=== PATIENT | female | born 1950 | race Caucasian/White ===

== ENCOUNTER 2020-04-30 18:02 | Emergency (ER) | payer MEDICARE, SELFPAY ==
[2020-04-30 19:17] VITALS: BP 186/81; PULSE 97; RESP 18; TEMP 36.1; O2SAT 97; BMI 42.0
[2020-04-30 20:55] VITALS: BP 180/74; PULSE 81; RESP 15; TEMP 36.1; O2SAT 98
--- NOTE | 2020-04-30 22:10 | ED.GENADULT ---
HPI - General Adult General Chief complaint: General Medical Stated complaint: hyperglycemia, Foot infection Time Seen by Provider: 04/30/20 21:57 Source: patient Mode of arrival: ambulatory Limitations: no limitations History of Present Illness HPI narrative: patient comes to emergency room complaining of right ankle cellulitis. Patient states it has been going on for several weeks, patient states her ankle hurts and it is very itchy at the same time, patient has been scratching and peeling of the scabs for a week. Patient denies any calf pain, no fever or chills. Patient is able to bear weight. Patient has also not notice that there was clear fluid leaking from some of the scabs, not purulent. MD complaint: Cellulitis Related Data Previous Rx's Medication Instructions Recorded sulfamethoxazole-trimethoprim 1 tab PO Q12H #14 tab 05/01/20 [Bactrim DS] Allergies Allergy/AdvReac Type Severity Reaction Status Date / Time cefazolin [From Kefzol] Allergy Mild RASH Verified 04/30/20 20:57 Keppra XR Allergy Unknown Rash Uncoded 04/30/20 19:24 Review of Systems Review of Systems: Constitutional : No Weight loss, No Fever, No Chills, No Night Sweats, No Fatigue, No Malaise ENT/Mouth : No Hearing loss, No Ear Pain, No Nasal Congestion, No Sinus Pain, No Hoarseness, No sore throat, No Rhinorrhea, No Swallowing Difficulty Eyes: No Eye Pain, No Swelling, No Redness, No Foreign Body, No Discharge, No Vision Changes Cardiovascular : No Chest Pain, No SOB, No Dyspnea on Exertion, No Orthopnea, No Edema, No Palpitations Respiratory : No Cough, No Sputum, No Wheezing, No Smoke Exposure, No Dyspnea Gastrointestinal : No Nausea, No Vomiting, No Diarrhea, No Constipation, No abdominal Pain, No Hematochezia, No Melena Genitourinary : no irregular bleeding, No Dysuria, No Urinary Frequency, No Hematuria, No Urinary Incontinence, No Urgency, No Flank Pain, No Urinary Flow Changes, No Hesitancy Musculoskeletal : No joint pain, No Myalgias, No Joint Swelling Skin : cellulitis, broken skin/scabs in right ankle Neuro : No Weakness, No Numbness, No Paresthesias, No Loss of Consciousness, No Dizziness, No Headache Psych : No Anxiety/Panic, No Depression, No SI/HI/AH/VH, No Social Issues, Heme/Lymph: No Bruising, No Bleeding,No Lymphadenopathy Endocrine : No Polyuria, No Polydipsia, No Temperature Intolerance [facility] Past Medical History Medical History Diabetes HTN (hypertension) Surgical History (Updated 04/30/20 @ 19:22 by Mary Elias) H/O liver transplant Hx of CABG Social History Social History Smoking Status: Never smoker Use of substances other than those prescribed or required for medical reasons: Yes Substance Use Type: Marijuana Substance Use Type Other:: edibles Substance Use Frequency: Occasionally Advance Directives: No Advance Directives Information Provided: No Physical Exam Vital Signs: Vital Signs: Last Vital Signs Temp 96.9 F 04/30/20 20:55 Pulse 89 05/01/20 04:39 Resp 14 05/01/20 04:39 BP 145/69 H 05/01/20 04:39 Pulse Ox 96 05/01/20 04:39 Body Mass Index 42.0 Appearance: Alert. Oriented X3. No acute distress. Eyes: Pupils equal, round and reactive to light. ENT: Pharynx normal. Neck: Normal inspection. Neck supple. No lymph nodes noted. No crepitus CVS: Normal heart rate and rhythm. Pulses normal. Normal S1 and S2 Respiratory: No respiratory distress. Breath sounds normal. No Wheezing. No rales Abdomen: Soft and nontender. No rigidity. No distention. good BS x4 Skin: dry skin, cellulitis in the right ankle, peeled of scabs, oozing clear fluid, +1 non-pitting edema Extremities: No lower extremity edema. No lower extremity edema. No Lacerations. No Rash Neuro: Oriented X 3. No motor deficit. No sensory deficit. Moving all extermities. No slurred speech. Course Course Course Narrative: Patient's blood glucose dropped from 693 to 465 to 98, patient 8, now blood sugar 194. Patient asymptomatic. Patient received p.o. Bactrim. Patient not able to take cephalosporins due to allergies. Medical Decision Making Lab Data Result diagrams: 04/30/20 22:46 05/01/20 02:07 Labs: Lab Results 04/30/20 04/30/20 04/30/20 Range/Units 22:46 22:46 22:46 WBC 7.4 (4.8-10.8) X10*3/uL RBC 4.52 (4.20-5.50) X10*6/uL Hgb 13.1 (12.0-16.0) g/dl Hct 38.8 (37-47) % MCV 85.8 (80-98) fL MCH 29.0 (27.0-33.0) pg MCHC 33.8 (31.0-35.0) g/dl RDW 12.8 (11.0-16.0) % Plt Count 198 (160-400) X10*3/uL MPV 10.0 (9.4-12.3) fL Immature Gran % (Auto) 0.3 (0.0-0.4) % Neut % (Auto) 68.4 (45-73) % Lymph % (Auto) 21.8 (20-40) % [place] % (Auto) 6.5 (2-11) % Eos % (Auto) 2.7 (0-4) % Baso % (Auto) 0.3 (0-2) % Lymph # (Auto) 1.6 (1.2-4.9) X10*3/uL [place] # (Auto) 0.5 (0.1-1.2) X10*3/uL Eos # (Auto) 0.2 (0.0-0.4) X10*3/uL Baso # (Auto) 0.0 (0.0-0.2) X10*3/uL Abs Immat Gran (auto) 0.02 (0.00-0.03) X10*3/uL Absolute Neuts (auto) 5.1 (2.0-8.3) X10*3/uL Absolute Nucleated RBC 0.000 (0.0-0.012) X10*3/uL Nucleated RBC % (auto) 0.0 (0.0-0.2) /100WBC Sodium 129 L (135-145) mmol/L Potassium 4.6 (3.3-5.1) mmol/l Chloride 92 L (96-108) mmol/L Carbon Dioxide 25 (22-29) mmol/L Anion Gap 17 (12-20) BUN 28 H (9-16) mg/dL Creatinine 1.59 H (0.5-1.4) mg/dL Estim Creat Clear Calc 38.3 Estimated GFR 32 POC Glucose (60-115) mg/dL Random Glucose 693 H* (60-115) mg/dL Lactic Acid 1.4 (0.5-2.0) mmol/L Calcium 8.4 (8.4-10.2) mg/dL 05/01/20 05/01/20 05/01/20 Range/Units 01:02 02:07 04:33 WBC (4.8-10.8) X10*3/uL RBC (4.20-5.50) X10*6/uL Hgb (12.0-16.0) g/dl Hct (37-47) % MCV (80-98) fL MCH (27.0-33.0) pg MCHC (31.0-35.0) g/dl RDW (11.0-16.0) % Plt Count (160-400) X10*3/uL MPV (9.4-12.3) fL Immature Gran % (Auto) (0.0-0.4) % Neut % (Auto) (45-73) % Lymph % (Auto) (20-40) % [place] % (Auto) (2-11) % Eos % (Auto) (0-4) % Baso % (Auto) (0-2) % Lymph # (Auto) (1.2-4.9) X10*3/uL [place] # (Auto) (0.1-1.2) X10*3/uL Eos # (Auto) (0.0-0.4) X10*3/uL Baso # (Auto) (0.0-0.2) X10*3/uL Abs Immat Gran (auto) (0.00-0.03) X10*3/uL Absolute Neuts (auto) (2.0-8.3) X10*3/uL Absolute Nucleated RBC (0.0-0.012) X10*3/uL Nucleated RBC % (auto) (0.0-0.2) /100WBC Sodium 132 L (135-145) mmol/L Potassium 3.7 (3.3-5.1) mmol/l Chloride 98 (96-108) mmol/L Carbon Dioxide 25 (22-29) mmol/L Anion Gap 13 (12-20) BUN 25 H (9-16) mg/dL Creatinine 1.37 (0.5-1.4) mg/dL Estim Creat Clear Calc 44.5 Estimated GFR 38 POC Glucose 488 H* 93 (60-115) mg/dL Random Glucose 465 H* (60-115) mg/dL Lactic Acid (0.5-2.0) mmol/L Calcium 8.2 L (8.4-10.2) mg/dL 05/01/20 05/01/20 Range/Units 04:45 05:09 WBC (4.8-10.8) X10*3/uL RBC (4.20-5.50) X10*6/uL Hgb (12.0-16.0) g/dl Hct (37-47) % MCV (80-98) fL MCH (27.0-33.0) pg MCHC (31.0-35.0) g/dl RDW (11.0-16.0) % Plt Count (160-400) X10*3/uL MPV (9.4-12.3) fL Immature Gran % (Auto) (0.0-0.4) % Neut % (Auto) (45-73) % Lymph % (Auto) (20-40) % [place] % (Auto) (2-11) % Eos % (Auto) (0-4) % Baso % (Auto) (0-2) % Lymph # (Auto) (1.2-4.9) X10*3/uL [place] # (Auto) (0.1-1.2) X10*3/uL Eos # (Auto) (0.0-0.4) X10*3/uL Baso # (Auto) (0.0-0.2) X10*3/uL Abs Immat Gran (auto) (0.00-0.03) X10*3/uL Absolute Neuts (auto) (2.0-8.3) X10*3/uL Absolute Nucleated RBC (0.0-0.012) X10*3/uL Nucleated RBC % (auto) (0.0-0.2) /100WBC Sodium (135-145) mmol/L Potassium (3.3-5.1) mmol/l Chloride (96-108) mmol/L Carbon Dioxide (22-29) mmol/L Anion Gap (12-20) BUN (9-16) mg/dL Creatinine (0.5-1.4) mg/dL Estim Creat Clear Calc Estimated GFR POC Glucose 85 95 (60-115) mg/dL Random Glucose (60-115) mg/dL Lactic Acid (0.5-2.0) mmol/L Calcium (8.4-10.2) mg/dL Discharge Plan Discharge Clinical Impression: Acute hyperglycemia Cellulitis Qualifiers: Site of cellulitis: unspecified site Qualified Code(s): L03.90 - Cellulitis, unspecified Patient Disposition: Home, Self-Care Instructions: Cellulitis (ED), Diabetic Hyperglycemia (ED) Additional Instructions: Please follow-up with your primary care physician tomorrow. If you have any worsening or new symptoms, please return to the emergency room or call 911 Prescriptions: New sulfamethoxazole-trimethoprim [Bactrim DS] 800-160 mg tablet 1 tab PO Q12H Qty: 14 RF: 0
[2020-04-30] MEDS: 0.9 % Sodium Chloride 1,000 ML 999 ML IVCONT (22:50)
[2020-04-30 22:53] LABS: Basophils Percent Auto 0.3 % (0-2); Eosinophils Absolute Auto 0.2 X10*3/uL (0.0-0.4); Eosinophils Percent Auto 2.7 % (0-4); Hematocrit 38.8 % (37-47); Hemoglobin 13.1 g/dl (12.0-16.0); Imm Gran Abs Auto 0.02 X10*3/uL (0.00-0.03); Imm Gran Pct Auto 0.3 % (0.0-0.4); Lymphocytes Absolute Auto 1.6 X10*3/uL (1.2-4.9); Lymphocytes Percent Auto 21.8 % (20-40); MANUAL DIFF FLAG NO; Mean Corpuscular HGB Conc 33.8 g/dl (31.0-35.0); Mean Corpuscular Volume 85.8 fL (80-98); Monocytes Absolute Auto 0.5 X10*3/uL (0.1-1.2); Monocytes Percent Auto 6.5 % (2-11); Neutrophils Absolute Auto 5.1 X10*3/uL (2.0-8.3); Neutrophils Percent Auto 68.4 % (45-73); Platelet Count 198 X10*3/uL (160-400); Red Blood Count 4.52 X10*6/uL (4.20-5.50); Red Cell Distribution Width 12.8 % (11.0-16.0); White Blood Count 7.4 X10*3/uL (4.8-10.8)
[2020-04-30 23:25] LABS: Lactic Acid 1.4 mmol/L (0.5-2.0)
[2020-04-30 23:35] LABS: Anion Gap 17 (12-20); Blood Urea Nitrogen 28 mg/dL (9-16); Calcium 8.4 mg/dL (8.4-10.2); Carbon Dioxide 25 mmol/L (22-29); Chloride 92 mmol/L (96-108); Creatinine Clr Calc Pharmacy 38.3; Estimated Glomerular Filt Rate 32; Glucose Random 693 mg/dL (60-115); Potassium 4.6 mmol/l (3.3-5.1); Sodium 129 mmol/L (135-145)
[2020-05-01] VITALS: BP 153/62; PULSE 84; RESP 15; O2SAT 98
[2020-05-01] MEDS: Insulin Regular, Human 100 UNIT/ML 3 ML VIAL 10 UNIT IVPUSH ×3 (00:39→04:10)
--- NOTE | 2020-05-01 00:56 | PC.NURSE ---
Patient had to be medicated for increased blood sugar of 693.
[2020-05-01 01:05] LABS: Glucose, Whole Blood 488 mg/dL (60-115)
--- NOTE | 2020-05-01 01:24 | PC.NURSE ---
Patient medicated per emar as noted.
[2020-05-01 02:07] VITALS: BP 162/73; PULSE 75; RESP 14; O2SAT 95
[2020-05-01 02:41] LABS: Anion Gap 13 (12-20); Blood Urea Nitrogen 25 mg/dL (9-16); Calcium 8.2 mg/dL (8.4-10.2); Carbon Dioxide 25 mmol/L (22-29); Chloride 98 mmol/L (96-108); Creatinine Clr Calc Pharmacy 44.5; Estimated Glomerular Filt Rate 38; Glucose Random 465 mg/dL (60-115); Potassium 3.7 mmol/l (3.3-5.1); Sodium 132 mmol/L (135-145)
[2020-05-01 04:00] VITALS: BP 164/67; PULSE 78; RESP 14; O2SAT 95
[2020-05-01 04:37] LABS: Glucose, Whole Blood 93 mg/dL (60-115)
[2020-05-01 04:39] VITALS: BP 145/69; PULSE 89; RESP 14; O2SAT 96
[2020-05-01 05:13] LABS: Glucose, Whole Blood 85 mg/dL (60-115)
[2020-05-01 05:13] LABS: Glucose, Whole Blood 95 mg/dL (60-115)
[2020-05-01 05:44] LABS: Glucose, Whole Blood 129 mg/dL (60-115)
== END 2020-05-01 06:40 | disposition home or self-care (01) ==
PROVIDERS: Emergency Provider Emergency Medicine
DX: E11.65 Type 2 diabetes mellitus with hyperglycemia (principal); L03.90 Cellulitis, unspecified; I10 Essential (primary) hypertension; Z79.899 Other long term (current) drug therapy
CPT/HCPCS: 36415; 80048; 82947; 83605; 85025; 87040; 96361; 96374; 96376; 99284

== ENCOUNTER 2020-05-02 15:09 | Emergency (ER) | payer MEDICARE, SELFPAY ==
[2020-05-02 15:47] VITALS: BP 178/78; PULSE 88; RESP 18; TEMP 36.7; O2SAT 97; BMI 38.5
--- NOTE | 2020-05-02 16:23 | ED_ITS ---
HPI - General Adult General Chief complaint: Recheck/Abnormal Lab/Rx Stated complaint: hyperglycemia Time Seen by Provider: 05/02/20 16:09 History of Present Illness HPI narrative: 69-year-old female with a history of diabetes presented today with having elevated glucose at the primary care doctor's office. Patient treat occasionally. Has been on same medication for diabetes. Patient claims compliance with her medication. Have increased urination. No fever no chills no cough no congestion or upper respiratory symptoms. Patient does have a infection in her right leg and foot that is currently being treated with Bactrim. The medications been on for while. Patient was in the emergency department yesterday for high sugars well. No systemic complaints at this time. No chest pain no shortness of breath no diaphoresis. Related Data Previous Rx's Medication Instructions Recorded sulfamethoxazole-trimethoprim 1 tab PO Q12H #14 tab 05/01/20 [Bactrim DS] Allergies Allergy/AdvReac Type Severity Reaction Status Date / Time cefazolin [From Kefzol] Allergy Mild RASH Verified 04/30/20 20:57 Keppra XR Allergy Unknown Rash Uncoded 04/30/20 19:24 Review of Systems Review of Systems: Constitutional: No Weight loss, No Fever, No Chills, No Night Sweats, positive Fatigue, No Malaise ENT/Mouth: No Hearing loss, No Ear Pain, No Nasal Congestion, No Sinus Pain, No Hoarseness, No sore throat, No Rhinorrhea, No Swallowing Difficulty Eyes: No Eye Pain, No Swelling, No Redness, No Foreign Body, No Discharge, No Vision Changes Cardiovascular: No Chest Pain, No SOB, No Dyspnea on Exertion, No Orthopnea, No Edema, No Palpitations Respiratory: No Cough, No Sputum, No Wheezing, No Smoke Exposure, No Dyspnea Gastrointestinal: No Nausea, No Vomiting, No Diarrhea, No Constipation, No abdominal Pain, No Hematochezia, No Melena Genitourinary: no irregular bleeding, No Dysuria, No Urinary Frequency, No Hematuria, No Urinary Incontinence, No Urgency, No Flank Pain, No Urinary Flow Changes, No Hesitancy Musculoskeletal: No joint pain, No Myalgias, No Joint Swelling Skin: No Skin Lesions, No rash Neuro: No Weakness, No Numbness, No Paresthesias, No Loss of Consciousness, No Dizziness, No Headache Psych: No Anxiety/Panic, No Depression, No SI/HI/AH/VH, No Social Issues, Heme/Lymph: No Bruising, No Bleeding,No Lymphadenopathy Endocrine: No Polyuria, No Polydipsia, No Temperature Intolerance [facility] Past Medical History Attestation statement: The following information was validated with the patient. Medical History Diabetes HTN (hypertension) Surgical History H/O liver transplant Hx of CABG Social History Social History Smoking Status: Never smoker Use of substances other than those prescribed or required for medical reasons: No Substance Use Type: Marijuana Advance Directives: No Advance Directives Information Provided: Yes Physical Exam Vital Signs: Vital Signs: Last Vital Signs Temp 98.5 F 05/02/20 19:23 Pulse 94 05/02/20 19:23 Resp 18 05/02/20 19:23 BP 153/58 H 05/02/20 19:23 Pulse Ox 99 05/02/20 19:23 Body Mass Index 38.5 Appearance: Alert. Oriented X3. No acute distress. Eyes: Pupils equal, round and reactive to light. ENT: Pharynx normal. Neck: Normal inspection. Neck supple. No lymph nodes noted. No crepitus CVS: Normal heart rate and rhythm. Pulses normal. Normal S1 and S2 Respiratory: No respiratory distress. Breath sounds normal. No Wheezing. No rales Abdomen: Soft and nontender. No rigidity. No distention. good BS x4 Skin: Skin warm and dry. Normal skin color. Normal skin turgor. Extremities: No lower extremity edema. Neurovascular intact to all extremities. No Lacerations. Positive slightly erythematous rash over the distal right ankle approximately 5 cm x 5 cm in size. There is no gross warmth on palpation. It blanches. Healing. Pulses are 2+ at dorsalis pedis. Range of motion at the ankles intact. Capillary refill at the toes are intact sensation over the foot intact Neuro: Oriented X 3. No motor deficit. No sensory deficit. Moving all extermities. No slurred speech Medical Decision Making MDM Narrative Medical decision making narrative: Patient's initial sugar over 600. Given insulin IV fluids. Patient's electrolytes showed no evidence of diabetic ketoacidosis. There is no anion gap. There is no ketones. Patient well appearing no distress. After IV fluid and sugar after monitoring for 3 hours patient's sugar down to below 300. Will discharge patient home. Will have patient closely monitor his sugar 3 times a day and follow a strict diabetic diet. Close follow-up tomorrow with her primary physician for changes in medication. Currently in stable condition. Lab Data Result diagrams: 05/02/20 16:46 05/02/20 16:46 Labs: Lab Results 05/02/20 05/02/20 05/02/20 Range/Units 16:44 16:46 16:54 VBG pH 7.37 (7.32-7.43) VBG pCO2 47 mmhg VBG Oxygen Liters/Min Not Reportable VBG pO2 37 mmhg VBG HCO3 26 mmol/L VBG O2 Saturation 73.3 % VBG Base Excess 0.5 mmol/L Sodium 131 L (135-145) mmol/L Potassium 4.7 D (3.3-5.1) mmol/l Chloride 95 L (96-108) mmol/L Carbon Dioxide 25 (22-29) mmol/L Anion Gap 16 (12-20) BUN 23 H (9-16) mg/dL Creatinine 1.68 H (0.5-1.4) mg/dL Estim Creat Clear Calc 34.5 Estimated GFR 30 POC Glucose 561 H* (60-115) mg/dL Random Glucose 649 H* (60-115) mg/dL Calcium 8.3 L (8.4-10.2) mg/dL Phosphorus 4.1 (2.7-4.5) mg/dL Magnesium 1.8 (1.6-2.6) mg/dL Total Bilirubin 0.7 (0.0-1.0) mg/dL AST 13 (5-31) U/L ALT 14 (0-31) U/L Alkaline Phosphatase 100 (39-117) U/L Total Protein 6.8 (6.5-8.0) g/dL Albumin 3.8 (3.5-5.0) g/dL Acetone, Qual Negative (Negative) 05/02/20 05/02/20 Range/Units 18:01 19:24 VBG pH (7.32-7.43) VBG pCO2 mmhg VBG Oxygen Liters/Min VBG pO2 mmhg VBG HCO3 mmol/L VBG O2 Saturation % VBG Base Excess mmol/L Sodium (135-145) mmol/L Potassium (3.3-5.1) mmol/l Chloride (96-108) mmol/L Carbon Dioxide (22-29) mmol/L Anion Gap (12-20) BUN (9-16) mg/dL Creatinine (0.5-1.4) mg/dL Estim Creat Clear Calc Estimated GFR POC Glucose 356 H* 302 H (60-115) mg/dL Random Glucose (60-115) mg/dL Calcium (8.4-10.2) mg/dL Phosphorus (2.7-4.5) mg/dL Magnesium (1.6-2.6) mg/dL Total Bilirubin (0.0-1.0) mg/dL AST (5-31) U/L ALT (0-31) U/L Alkaline Phosphatase (39-117) U/L Total Protein (6.5-8.0) g/dL Albumin (3.5-5.0) g/dL Acetone, Qual (Negative) Discharge Plan Discharge Clinical Impression: Acute hyperglycemia Patient Disposition: Home, Self-Care Instructions: Diabetic Hyperglycemia (ED) Additional Instructions: Please take your diabetes medicine. Please follow strict diabetic diet. Small frequent meals. Please follow-up with your doctor tomorrow. Please check your sugars 3 times a day Prescriptions: No Action sulfamethoxazole-trimethoprim [Bactrim DS] 800-160 mg tablet 1 tab PO Q12H Qty: 14 RF: 0 Referrals: Physician,Unknown [Primary Care Provider] - 1 day
--- NOTE | 2020-05-02 16:41 | PC.NURSE ---
IV EST BY EDMOND 20 G LC. TOW STICKS BY THIS RN, R AND L HAND W/O SUCCESS. LABS DRAWN
[2020-05-02 16:48] LABS: Glucose, Whole Blood 561 mg/dL (60-115)
[2020-05-02] MEDS: Insulin Regular, Human 100 UNIT/ML 3 ML VIAL 10 UNIT IVPUSH (16:55)
[2020-05-02 16:56] VITALS: BP 158/72; PULSE 80; RESP 18; O2SAT 97
[2020-05-02 17:02] LABS: Base Excess VBG 0.5 mmol/L; HCO3 VBG 26 mmol/L; PCO2 VBG 47 mmhg; PO2 VBG 37 mmhg; pH VBG 7.37 (7.32-7.43)
[2020-05-02 17:03] LABS: Oxygen Saturation VBG 73.3 %
--- NOTE | 2020-05-02 17:11 | XR_ITS ---
EXAMINATION: XR CHEST CLINICAL INFORMATION: Shortness of breath COMPARISON: Chest x-ray 01/13/2020, 11/04/2019. CT of chest and chest x-ray 10/27/2019 TECHNIQUE: Frontal portable view of the chest was obtained. 5:05 PM FINDINGS: Status post median sternotomy. Heart size normal. Cardiac mediastinal contours normal. No pulmonary vascular congestion. No focal consolidation or pleural effusion. There is no pneumothorax. Compared to the prior chest x-ray is been no substantial change. XR/XR chest 1V IMPRESSION: No acute abnormality of chest.
[2020-05-02 17:15] LABS: Acetone, serum QL Negative (Negative)
[2020-05-02 17:26] LABS: Alanine Aminotransferase 14 U/L (0-31); Albumin Level 3.8 g/dL (3.5-5.0); Alkaline Phosphatase 100 U/L (39-117); Anion Gap 16 (12-20); Aspartate Amino Transferase 13 U/L (5-31); Bilirubin Total 0.7 mg/dL (0.0-1.0); Blood Urea Nitrogen 23 mg/dL (9-16); Calcium 8.3 mg/dL (8.4-10.2); Carbon Dioxide 25 mmol/L (22-29); Chloride 95 mmol/L (96-108); Creatinine Clr Calc Pharmacy 34.5; Estimated Glomerular Filt Rate 30; Glucose Random 649 mg/dL (60-115); Magnesium 1.8 mg/dL (1.6-2.6); Phosphorus 4.1 mg/dL (2.7-4.5); Potassium 4.7 mmol/l (3.3-5.1); Sodium 131 mmol/L (135-145); Total Protein 6.8 g/dL (6.5-8.0)
[2020-05-02 18:05] LABS: Glucose, Whole Blood 356 mg/dL (60-115)
[2020-05-02] MEDS: 0.9 % Sodium Chloride 1,000 ML 500 ML IVCONT (18:38)
[2020-05-02 18:41] VITALS: BP 152/78; PULSE 88; RESP 18
[2020-05-02 19:23] VITALS: BP 153/58; PULSE 94; RESP 18; TEMP 36.9; O2SAT 99
[2020-05-02 19:31] LABS: Glucose, Whole Blood 302 mg/dL (60-115)
== END 2020-05-02 19:40 | disposition home or self-care (01) ==
PROVIDERS: Emergency Provider Emergency Medicine Emergency Medical Services
DX: E11.65 Type 2 diabetes mellitus with hyperglycemia (principal); R35.0 Frequency of micturition; M79.661 Pain in right lower leg; R06.02 Shortness of breath; Z79.899 Other long term (current) drug therapy
CPT/HCPCS: 71045; 80053; 82009; 82803; 82947; 83735; 84100; 96361; 96374; 99284

== ENCOUNTER 2020-05-17 13:15 | Emergency (ER) | payer MEDICARE, SELFPAY ==
[2020-05-17 14:21] VITALS: BP 164/88; PULSE 80; RESP 16; TEMP 35.9; O2SAT 96; BMI 37.3
[2020-05-17 14:38] LABS: Glucose Urine UA >=1000 MG/DL (NEG); Leukocyte Esterase Urine NEG (NEG); Nitrite Urine NEG (NEG); Specific Gravity - Urine <= 1.005 (1.005-1.025); Urine Blood NEG (NEG); Urine Ketones NEG (NEG); Urine Protein NEG (NEG-TRACE)
[2020-05-17 14:41] LABS: Appearance Urine CLEAR; Color Urine YELLOW
[2020-05-17 14:59] LABS: Amorphous Sediment Urine TRACE /LPF; RBC Urine 0-2 /HPF (0); Squamous Epithelial Cell Urine TRACE /LPF
[2020-05-17 15:00] LABS: WBC Clumps Urine NOTED
--- NOTE | 2020-05-17 16:05 | ED_ITS ---
HPI - General Adult General Chief complaint: General Medical Stated complaint: urinary symptoms Time Seen by Provider: 05/17/20 15:57 Source: patient Mode of arrival: ambulatory Limitations: no limitations History of Present Illness HPI narrative: Patient comes to emergency room complaining of vaginal itching. Patient states she was seen by her primary care physician approximately week ago, she was given a dose of for vaginal suppositories. Patient states the 1st day she had relief of symptoms, however the next day she started having vaginal itching again. Patient states it green on the outside when she urinates because of all the scratching she has been doing. Patient states her primary care physician check her urine approximately 5 days ago, the initial urinalysis was negative, but the cultures were positive. Therefore, she was asked to come to the emergency room. Patient states she has been having chills, no fever no flank pain, no frequency MD complaint: Vaginal itching Related Data Previous Rx's Medication Instructions Recorded sulfamethoxazole-trimethoprim 1 tab PO Q12H #14 tab 05/01/20 [Bactrim DS] nitrofurantoin monohyd/m-cryst 100 mg PO Q12H 7 Days #14 cap 05/17/20 [Macrobid] Allergies Allergy/AdvReac Type Severity Reaction Status Date / Time cefazolin [From Kefzol] Allergy Mild RASH Verified 04/30/20 20:57 Keppra XR Allergy Unknown Rash Uncoded 04/30/20 19:24 Review of Systems Review of Systems: Constitutional : No Weight loss, No Fever, No Chills, No Night Sweats, No Fatigue, No Malaise ENT/Mouth : No Hearing loss, No Ear Pain, No Nasal Congestion, No Sinus Pain, No Hoarseness, No sore throat, No Rhinorrhea, No Swallowing Difficulty Eyes: No Eye Pain, No Swelling, No Redness, No Foreign Body, No Discharge, No Vision Changes Cardiovascular : No Chest Pain, No SOB, No Dyspnea on Exertion, No Orthopnea, No Edema, No Palpitations Respiratory : No Cough, No Sputum, No Wheezing, No Smoke Exposure, No Dyspnea Gastrointestinal : No Nausea, No Vomiting, No Diarrhea, No Constipation, No abdominal Pain, No Hematochezia, No Melena Genitourinary : no irregular bleeding, No Urinary Frequency, No Hematuria, No Urinary Incontinence, No Urgency, No Flank Pain, No Urinary Flow Changes, No Hesitancy, states she has burning with urination only in the labia majora Musculoskeletal : No joint pain, No Myalgias, No Joint Swelling Skin : No Skin Lesions, No rash Neuro : No Weakness, No Numbness, No Paresthesias, No Loss of Consciousness, No Dizziness, No Headache Psych : No Anxiety/Panic, No Depression, No SI/HI/AH/VH, No Social Issues, Heme/Lymph: No Bruising, No Bleeding,No Lymphadenopathy Endocrine : No Polyuria, No Polydipsia, No Temperature Intolerance [facility] Past Medical History Medical History Diabetes HTN (hypertension) Surgical History H/O liver transplant Hx of CABG Social History Social History Alcohol intake: never Smoking Status: Never smoker Use of substances other than those prescribed or required for medical reasons: No Substance Use Type: Marijuana Advance Directives: No Advance Directives Information Provided: No Physical Exam Vital Signs: Vital Signs: Last Vital Signs Temp 98.2 F 05/17/20 18:00 Pulse 78 05/17/20 18:00 Resp 16 05/17/20 18:00 BP 131/63 05/17/20 18:00 Pulse Ox 94 05/17/20 18:00 Body Mass Index 37.3 Appearance: Alert. Oriented X3. No acute distress. Eyes: Pupils equal, round and reactive to light. ENT: Pharynx normal. Neck: Normal inspection. Neck supple. No lymph nodes noted. No crepitus CVS: Normal heart rate and rhythm. Pulses normal. Normal S1 and S2 Respiratory: No respiratory distress. Breath sounds normal. No Wheezing. No rales Abdomen: Soft and nontender. No rigidity. No distention. good BS x4 Skin: Skin warm and dry. Cellulitis and dry lower extremity is improving from last time that the patient was here Extremities: No lower extremity edema. No lower extremity edema. No Lacerations. No Rash Neuro: Oriented X 3. No motor deficit. No sensory deficit. Moving all extermities. No slurred speech. Course Course Course Narrative: Patient's blood glucose is now 116. Patient will be discharged home with a prescription for a mild UTI. Patient states that she has a headache and she feels nauseous, patient was offered IV Zofran, Tylenol, and something to eat. Patient states that she refuses to eat anything here. Patient states that she wants to stay here she does not want to leave because it is late, states that she feels too weak. As patient's nurse was getting her medication for nausea and headache, patient stood up walk and says that she is ready for discharge Medical Decision Making Lab Data Labs: Lab Results 05/17/20 05/17/20 05/17/20 Range/Units 14:26 16:13 16:19 POC Glucose > 600 H* > 600 H* (60-115) mg/dL Urine Color YELLOW Urine Appearance CLEAR Urine pH 6.0 (5.0-8.0) Ur Specific [place] <= 1.005 (1.005-1.025) Urine Protein NEG (NEG-TRACE) MG/DL Urine Glucose (UA) >=1000 H (NEG) MG/DL Urine Ketones NEG (NEG) MG/DL Urine Blood NEG (NEG) Urine Nitrite NEG (NEG) Ur Leukocyte Esterase NEG (NEG) Urine RBC 0-2 (0) /HPF Urine WBC 5-9 H (0-4) /HPF Urine WBC Clumps NOTED Ur Squamous Epith Cells TRACE /LPF Amorphous Sediment TRACE /LPF Urine Bacteria NONE /LPF 05/17/20 05/17/20 05/17/20 Range/Units 18:22 19:52 21:20 POC Glucose 547 H* 351 H* 116 H (60-115) mg/dL Urine Color Urine Appearance Urine pH (5.0-8.0) Ur Specific [place] (1.005-1.025) Urine Protein (NEG-TRACE) MG/DL Urine Glucose (UA) (NEG) MG/DL Urine Ketones (NEG) MG/DL Urine Blood (NEG) Urine Nitrite (NEG) Ur Leukocyte Esterase (NEG) Urine RBC (0) /HPF Urine WBC (0-4) /HPF Urine WBC Clumps Ur Squamous Epith Cells /LPF Amorphous Sediment /LPF Urine Bacteria /LPF 05/17/20 Range/Units 22:18 POC Glucose 122 H (60-115) mg/dL Urine Color Urine Appearance Urine pH (5.0-8.0) Ur Specific [place] (1.005-1.025) Urine Protein (NEG-TRACE) MG/DL Urine Glucose (UA) (NEG) MG/DL Urine Ketones (NEG) MG/DL Urine Blood (NEG) Urine Nitrite (NEG) Ur Leukocyte Esterase (NEG) Urine RBC (0) /HPF Urine WBC (0-4) /HPF Urine WBC Clumps Ur Squamous Epith Cells /LPF Amorphous Sediment /LPF Urine Bacteria /LPF Discharge Plan Discharge Clinical Impression: Urinary tract infection, Acute hyperglycemia Patient Disposition: Home, Self-Care Instructions: Diabetic Hyperglycemia (ED), Urinary Tract Infection in Women (ED) Additional Instructions: Please follow-up with her primary care physician. Your blood sugar levels are not well controlled, you may need a readjustment in your insulin. Prescriptions: New nitrofurantoin monohyd/m-cryst [Macrobid] 100 mg capsule 100 mg PO Q12H 7 Days Qty: 14 RF: 0 No Action sulfamethoxazole-trimethoprim [Bactrim DS] 800-160 mg tablet 1 tab PO Q12H Qty: 14 RF: 0
[2020-05-17 16:24] VITALS: BP 115/43; PULSE 77; RESP 16; TEMP 37.1; O2SAT 95
[2020-05-17 16:30] LABS: Glucose, Whole Blood > 600 mg/dL (60-115)
[2020-05-17 16:30] LABS: Glucose, Whole Blood > 600 mg/dL (60-115)
[2020-05-17] MEDS: Insulin Regular, Human 100 UNIT/ML 3 ML VIAL 15 UNIT SUBCUT (17:24)
[2020-05-17 18:00] VITALS: BP 131/63; PULSE 78; RESP 16; TEMP 36.8; O2SAT 94
[2020-05-17 18:29] LABS: Glucose, Whole Blood 547 mg/dL (60-115)
[2020-05-17] MEDS: Insulin Regular, Human 100 UNIT/ML 3 ML VIAL 10 UNIT IVPUSH (19:17)
[2020-05-17 19:56] LABS: Glucose, Whole Blood 351 mg/dL (60-115)
[2020-05-17] MEDS: 0.9 % Sodium Chloride 1,000 ML 999 ML IVCONT (20:20)
[2020-05-17 21:24] LABS: Glucose, Whole Blood 116 mg/dL (60-115)
[2020-05-17] MEDS: Nitrofurantoin Monohyd/M-Cryst 100 MG CAPSULE PO (22:15)
--- NOTE | 2020-05-17 22:17 | PC.NURSE ---
patient has been stating leg cramping that than stated to md it went yana. patient was told that she is discharged and that everything came back well. Provider spoke to patient and patient is refusing discharge. patient states nausea and headache. provider will order medication for nausea and headache. patient was also offered food and stated I don't want anything and I am not leaving patient was again explained that there was no reason to stay admitted in the hospital. Charge made aware of issue.
[2020-05-17 22:22] LABS: Glucose, Whole Blood 122 mg/dL (60-115)
[2020-05-17] MEDS: ondansetron HCL 4 MG/2 ML VIAL IVPUSH (23:13)
[2020-05-17] MEDS: Acetaminophen 325 MG TABLET 650 MG PO (23:13)
== END 2020-05-17 23:24 | disposition home or self-care (01) ==
PROVIDERS: Emergency Provider Emergency Medicine
DX: N39.0 Urinary tract infection, site not specified (principal); E11.65 Type 2 diabetes mellitus with hyperglycemia; F12.90 Cannabis use, unspecified, uncomplicated; Z79.899 Other long term (current) drug therapy
CPT/HCPCS: 81001; 82947; 87086; 96361; 96374; 96375; 99284; J2405

== ENCOUNTER → 2020-05-30 10:28 | Outpatient (BNVA) | payer MEDICARE, SELFPAY | PROVIDERS: Visit Provider Anesthesiology | DX: L03.115 Cellulitis of right lower limb (principal) | CPT/HCPCS: 99202 ==

== ENCOUNTER 2020-07-24 09:55 | Outpatient (REF) | payer MEDICARE, SELFPAY ==
--- NOTE | 2020-07-24 | US_ITS ---
EXAMINATION: COLOR-FLOW DUPLEX IMAGING OF THE BILATERAL LOWER EXTREMITY ARTERIAL SYSTEM. VELOCITY MEASUREMENTS THROUGHOUT THE FEMORAL ARTERIES WITH ANKLE-BRACHIAL PERIPHERAL ARTERIAL TESTING. CLINICAL INFORMATION: This is a 69-year-old female with peripheral vascular disease. Interventional Radiologist: Omari Sidhu M.D., F.S.I.R., F.A.C.R. RIGHT FEMORAL RUNOFF VELOCITIES: The right common femoral artery measures 123 cm/s and triphasic. The right profunda femoral artery is 95 cm/s and is biphasic. Right proximal superficial femoral artery measures 113 cm/s and monophasic. Mid superficial femoral artery is 108 cm/s and monophasic. Distal right superficial femoral artery measures 108 cm/s and is monophasic. Right popliteal velocity measures 91 cm/s and is monophasic. The posterior tibial artery velocity measures 31 cm/s and was monophasic. The right ankle-brachial index is 0.64. LEFT FEMORAL RUNOFF VELOCITIES: The left common femoral artery measures 125 cm/s and triphasic. The left profunda femoral artery is 73 cm/s and is biphasic. Left proximal superficial femoral artery measures 97 cm/s and triphasic. Mid superficial femoral artery is 90 cm/s and triphasic. Distal left superficial femoral artery measures 105 cm/s and is triphasic. Left popliteal velocity measures 127 cm/s and is monophasic. The posterior tibial artery velocity measures 37 cm/s and was monophasic. The left ankle-brachial neck is 1.35. US/US arterial duplex LE BI IMPRESSION: 1. Abnormal right lower extremity peripheral arterial testing with evidence of hemodynamically significant stenosis. The exact level of stenosis is unclear from the velocities. However, there is likely tibial vessel disease present. There are also monophasic waveforms extending throughout the superficial femoral artery and downward. Therefore, the patient may have right-sided inflow disease. 2. Normal left-sided peripheral arterial testing without evidence of hemodynamically significant stenosis.
== END 2020-07-24 09:56 | disposition home or self-care (01) ==
LOC: HO.US 09:55
PROVIDERS: Visit Provider Surgery Vascular Surgery
DX: I73.9 Peripheral vascular disease, unspecified (principal)
CPT/HCPCS: 93923; 93925

== ENCOUNTER 2022-11-19 15:51 | Emergency (ER) | payer OTHER, SELFPAY ==
--- NOTE | ~2022-11-19 | CT_ITS ---
EXAMINATION: CT HEAD WITHOUT CONTRAST CLINICAL INFORMATION: Status post fall on blood thinners COMPARISON: 06/19/2007 TECHNIQUE: Contiguous axial imaging was performed from the skull base to vertex without intravenous administration of contrast. This CT examination was performed using dose optimization techniques as appropriate, variously including the following: *Automated exposure control *Adjustment of mA and/or kV according to patient size (this includes techniques or standardized protocols for targeted exams where dose is matched to indication/reason for exam; i.e. extremities or head) *Use of iterative reconstruction technique DLP: 746 mGy-cm FINDINGS: There is no midline shift. There is no mass effect. There is no hemorrhage. The basilar cisterns appear patent. The posterior fossa is grossly within normal limits. No extra-axial collection. Scattered areas of probable white matter ischemic change. Mild atrophy. Review of the bone windows does not demonstrate bony fracture. CT/CT head/brain wo IV con IMPRESSION: Negative acute noncontrast CT of the brain. Some scattered white matter ischemic change and atrophy are noted
--- NOTE | ~2022-11-19 | XR_ITS ---
EXAMINATION: XR KNEE, LEFT CLINICAL INFORMATION: Status post fall COMPARISON: None available. TECHNIQUE: Four views of the left knee. FINDINGS: There are subchondral lucencies in the lateral tibial plateau and underlying the tibial spines. There appears to be depression of the lateral tibial articular surface. Findings are suspicious for a comminuted intra-articular depressed fracture. Bones are osteopenic. No definite tibial or fibular fracture is seen. Mild medial and lateral compartment joint space narrowing. Moderate joint effusion. Extensive severe vascular calcification. XR/XR knee LT 3V IMPRESSION: Findings suspicious for a comminuted depressed lateral tibial plateau fracture. Fracture likely involves the central aspect of the proximal tibia underlying the tibial spines as well. Moderate effusion. Mild medial and lateral compartment arthritis.
--- NOTE | ~2022-11-19 | CT_ITS ---
EXAMINATION: CT LEFT KNEE WITHOUT CONTRAST CLINICAL INFORMATION: Assess fracture COMPARISON: Radiographs the same day TECHNIQUE: CT is performed in the axial plane with additional 2-D coronal and sagittal reformatted images generated on the CT workstation. No contrast Dose: 190 mGy-cm. FINDINGS: CT confirms the presence of a acute depressed lateral posterior tibial plateau fracture. This is acute and demonstrates approximately 5 mm depression. Mild comminution without any displacement. Proximal fibula head appears intact. There is lipohemarthrosis. There is no underlying bony lesion. No fracture fragments seen within the joint space. No other focal abnormality. Severe Monckeberg calcifications consistent with diabetes. Patella intact. Notable varicosities medially noted superficially. CT/CT knee LT wo IV con IMPRESSION: Depressed lateral tibial plateau fracture as above. Correlate with physical exam and consider MRI to assess for any disruption of the posterolateral corner soft tissue structures.
[2022-11-19 16:00] VITALS: BP 148/90; PULSE 89; O2SAT 98
[2022-11-19 16:14] VITALS: BP 118/57; PULSE 79; RESP 16; TEMP 36.8; O2SAT 95; BMI 38.4
--- NOTE | 2022-11-19 16:26 | ED_ITS ---
HPI - Fall General Chief Complaint: Fall Stated Complaint: fall Time Seen by Provider: 11/19/22 16:21 Source: patient Mode of arrival: EMS Limitations: no limitations History of Present Illness HPI Narrative: Patient is 71 years with history of AFib on Eliquis was walking tripped and fell landed on her left knee patient was walking with her daughter next to her no other injuries no head injuries no loss of consciousness patient able to put pressure on the left knee because of pain no chest pain or palpitation Related Data Home Medications Medication Instructions Recorded Confirmed amlodipine 5 mg tablet 5 mg PO DAILY 05/30/20 11/20/22 apixaban 5 mg tablet 5 mg PO BID 05/30/20 11/20/22 atorvastatin 40 mg tablet mg PO 05/30/20 blood sugar diagnostic #10 ea 05/30/20 blood-glucose meter #1 ea 05/30/20 clopidogrel 75 mg tablet 75 mg PO DAILY 05/30/20 11/20/22 dulaglutide 0.75 mg/0.5 mL 1.5 mg subcut QWEEK 05/30/20 11/20/22 subcutaneous pen injector hydralazine 25 mg tablet 25 mg PO TID 05/30/20 11/20/22 hydrochlorothiazide 12.5 mg tablet 12.5 mg PO DAILY 05/30/20 11/20/22 insulin aspart U-100 100 unit/mL 2 - 24 unit subcut TID 05/30/20 11/20/22 (3 mL) subcutaneous pen isosorbide mononitrate 60 mg 60 mg PO DAILY 05/30/20 11/20/22 tablet,extended release 24 hr lancets 28 gauge #100 ea 05/30/20 omeprazole 20 mg capsule,delayed 20 mg PO DAILY 05/30/20 11/20/22 release sertraline 25 mg tablet 25 mg PO DAILY 05/30/20 11/20/22 tacrolimus 1 mg capsule, 0 mg PO 05/30/20 immediate-release Previous Rx's Medication Instructions Recorded sulfamethoxazole 800 1 tab PO Q12H #14 tabs 05/01/20 mg-trimethoprim 160 mg tablet (Bactrim DS) nitrofurantoin 100 mg PO Q12H 7 days #14 caps 05/17/20 monohydrate/macrocrystals 100 mg capsule (Macrobid) Allergies Allergy/AdvReac Type Severity Reaction Status Date / Time cefazolin [From fzol] Allergy Mild RASH Verified 05/30/20 10:45 Keppra XR Allergy Unknown Rash Uncoded 04/30/20 19:24 Review of Systems Review of Systems: Yes all other systems are reviewed and are negative [facility] Past Medical History Medical History Cellulitis of right lower extremity Diabetes HTN (hypertension) Surgical History H/O liver transplant Hx of CABG Social History Social History Alcohol intake: never Smoked in Last 30 Days: No Use of substances other than those prescribed or required for medical reasons: No Substance Use Type: Marijuana Advance Directives: No Advance Directives Information Provided: No Physical Exam Vital Signs: Vital Signs: Last Vital Signs Temp 98.1 F 11/19/22 22:00 Pulse 73 11/19/22 22:00 Resp 18 11/19/22 22:00 BP 158/56 H 11/19/22 22:00 Pulse Ox 95 11/19/22 22:00 O2 Del Method Room Air 11/19/22 22:00 BMI result Body Mass Index 38.4 Appearance: Alert. Oriented X3. No acute distress. Eyes: PERRLA, No Nystagmus ENT: Pharynx normal. Oral Mucosa moist atraumatic normocephalic Neck: Normal inspection. Neck supple. No midline tenderness CVS: Normal heart rate and rhythm. Pulses normal. Respiratory: No respiratory distress. Equal air entry bilateral, no wheezing/rales/rhonchi Abdomen: Soft and nontender. Bowel sounds are present, no mass palpable, no CVA tenderness Skin: Skin warm and dry. Normal skin color. Normal skin turgor. Extremities: No lower extremity edema. No calf tenderness diffuse tenderness left knee with soft tissue swelling pelvis stable Neuro: Oriented X 3. No motor deficit. No sensory deficit.No cerebellar signs , cranial nerves II-XII intact Medications Administered Discontinued Medications Generic Name Dose Route Start Last Admin Trade Name Freq PRN Reason Stop Dose Admin Morphine Sulfate 4 mg 11/19/22 20:26 11/19/22 22:32 Morphine Sulfate 4 Mg/Ml Cartridge IVPUSH 11/19/22 20:27 4 mg ONCE ONE Administration Protocol Ondansetron HCl 4 mg 11/19/22 20:26 11/19/22 22:32 Ondansetron Hcl 4 Mg/2 Ml Vial IVPUSH 11/19/22 20:27 4 mg ONCE ONE Administration Oxycodone HCl 10 mg 11/19/22 16:42 11/19/22 16:47 Oxycodone Hcl Immed Release 5 Mg Tablet PO 11/19/22 16:43 10 mg ONCE ONE Administration Medical Decision Making Medical Decision Making [facility] Narrative: Patient with left tibial plateau fracture case discussed with Dr. Amezquita orthopedics nonsurgical management with nonweightbearing crutches knee immobilizer and to be re-evaluated as outpatient for possible surgery in 7-10 days. Patient able to manage at home will get case management for rehab placement Lab Data [facility] Lab Attestation statement: I reviewed the patient's lab results. 11/19/22 18:23 11/19/22 19:34 Labs: Lab Results 11/19/22 11/19/22 11/19/22 Range/Units 18:23 18:23 19:34 WBC 13.0 H (4.8-10.8) X10*3/uL RBC 4.73 (4.20-5.50) X10*6/uL Hgb 13.1 (12.0-16.0) g/dl Hct 41.7 (37.0-47.0) % MCV 88.2 (80.0-98.0) fL MCH 27.7 (27.0-33.0) pg MCHC 31.4 (31.0-35.0) g/dl RDW 13.8 (11.0-16.0) % Plt Count 200 (160-400) X10*3/uL MPV 9.2 L (9.4-12.3) fL Immature Gran % (Auto) 0.7 H (0.0-0.4) % Neut % (Auto) 81.4 H (45-73) % Lymph % (Auto) 9.7 L (20-40) % [place] % (Auto) 5.1 (2-11) % Eos % (Auto) 2.8 (0-4) % Baso % (Auto) 0.3 (0-2) % Lymph # (Auto) 1.3 (1.2-4.9) X10*3/uL [place] # (Auto) 0.7 (0.1-1.2) X10*3/uL Eos # (Auto) 0.4 (0.0-0.4) X10*3/uL Baso # (Auto) 0.0 (0.0-0.2) X10*3/uL Abs Immat Gran (auto) 0.09 H (0.00-0.03) X10*3/uL Absolute Neuts (auto) 10.6 H (2.0-8.3) x10*3/uL Absolute Nucleated RBC 0.000 (0.0-0.012) X10*3/uL Nucleated RBC % (auto) 0.0 (0.0-0.2) /100WBC PT 11.7 (10.0-13.1) SEC INR 1.0 (0.9-1.1) Sodium 141 (135-145) mmol/L Potassium 5.0 (3.3-5.1) mmol/L Chloride 108 (96-108) mmol/L Carbon Dioxide 24 (22-29) mmol/L Anion Gap 14 (12-20) BUN 32 H (9-16) mg/dL Creatinine 1.32 (0.5-1.4) mg/dL Estim Creat Clear Calc 42.7 Estimated GFR 40 Random Glucose 144 H (60-115) mg/dL Calcium 9.4 D (8.4-10.2) mg/dL Total Bilirubin 0.5 (0.0-1.0) mg/dL AST 16 (5-31) U/L ALT 12 (0-31) U/L Alkaline Phosphatase 95 (39-117) U/L Total Protein 7.3 (6.5-8.0) g/dL Albumin 3.9 (3.5-5.0) g/dL Independent Interpretation I performed an independent interpretation of an: EKG Interpretation: Normal sinus rhythm heart rate of 75, no acute ST changes normal axis no acute ischemia Radiology Impression Discussion of test interpretation with radiology: I have reviewed the radiologist's reading. Radiologist Impression: CT/CT knee LT wo IV con IMPRESSION: Depressed lateral tibial plateau fracture as above. Correlate with physical exam and consider MRI to assess for any disruption of the posterolateral corner soft tissue structures. ? Discharge Plan Discharge Clinical Impression: Closed fracture of left tibial plateau Patient Disposition: Still a Patient Prescriptions: No Action nitrofurantoin monohyd/m-cryst [Macrobid] 100 mg capsule 100 mg PO Q12H 7 Days Qty: 14 0RF Rx Instructions: must administer with a meal/food sulfamethoxazole-trimethoprim [Bactrim DS] 800-160 mg tablet 1 tab PO Q12H Qty: 14 0RF amlodipine 5 mg tablet 5 mg PO DAILY Eliquis 5 mg tablet 5 mg PO BID clopidogrel 75 mg tablet 75 mg PO DAILY Trulicity 0.75 mg/0.5 mL pen injector 1.5 mg subcut QWEEK hydralazine 25 mg tablet 25 mg PO TID hydrochlorothiazide 12.5 mg tablet 12.5 mg PO DAILY isosorbide mononitrate 60 mg tablet extended release 24 hr 60 mg PO DAILY insulin aspart U-100 100 unit/mL (3 mL) insulin pen 2 - 24 unit subcut TID omeprazole 20 mg capsule,delayed release(DR/EC) 20 mg PO DAILY sertraline 25 mg tablet 25 mg PO DAILY
--- NOTE | 2022-11-19 16:43 | PC.NURSE ---
Iniial contact with pt. pt incontinent, incont care provided. no obvious injury to leg. call fowler in reach.
[2022-11-19] MEDS: oxyCODONE HCl Immed Release 5 MG TABLET 10 MG PO (16:47)
[2022-11-19 18:26] VITALS: BP 133/88; PULSE 91; RESP 14; TEMP 36.6; O2SAT 97
--- NOTE | 2022-11-19 18:26 | PC.NURSE ---
IV attempted, labs drawn and sent, unsuccessful IV start.
[2022-11-19 18:27] LABS: MANUAL DIFF FLAG NO
[2022-11-19 18:31] LABS: Basophils Percent Auto 0.3 % (0-2); Eosinophils Absolute Auto 0.4 X10*3/uL (0.0-0.4); Eosinophils Percent Auto 2.8 % (0-4); Hematocrit 41.7 % (37.0-47.0); Hemoglobin 13.1 g/dl (12.0-16.0); Imm Gran Abs Auto 0.09 X10*3/uL (0.00-0.03); Imm Gran Pct Auto 0.7 % (0.0-0.4); Lymphocytes Absolute Auto 1.3 X10*3/uL (1.2-4.9); Lymphocytes Percent Auto 9.7 % (20-40); Mean Corpuscular HGB Conc 31.4 g/dl (31.0-35.0); Mean Corpuscular Hemoglobin 27.7 pg (27.0-33.0); Mean Corpuscular Volume 88.2 fL (80.0-98.0); Mean Platelet Volume 9.2 fL (9.4-12.3); Monocytes Absolute Auto 0.7 X10*3/uL (0.1-1.2); Monocytes Percent Auto 5.1 % (2-11); Neutrophils Absolute Auto 10.6 x10*3/uL (2.0-8.3); Neutrophils Percent Auto 81.4 % (45-73); Platelet Count 200 X10*3/uL (160-400); Red Blood Count 4.73 X10*6/uL (4.20-5.50); Red Cell Distribution Width 13.8 % (11.0-16.0)
[2022-11-19 18:33] LABS: Prothrombin Time 11.7 SEC (10.0-13.1)
[2022-11-19 20:00] VITALS: BP 140/89; BP 170/69; PULSE 74; PULSE 85; RESP 16; TEMP 36.7; TEMP 37.2; O2SAT 97; O2SAT 98
[2022-11-19 20:09] LABS: Alanine Aminotransferase 12 U/L (0-31); Albumin Level 3.9 g/dL (3.5-5.0); Alkaline Phosphatase 95 U/L (39-117); Anion Gap 14 (12-20); Aspartate Amino Transferase 16 U/L (5-31); Bilirubin Total 0.5 mg/dL (0.0-1.0); Blood Urea Nitrogen 32 mg/dL (9-16); Calcium 9.4 mg/dL (8.4-10.2); Carbon Dioxide 24 mmol/L (22-29); Chloride 108 mmol/L (96-108); Creatinine Clr Calc Pharmacy 42.7; Estimated Glomerular Filt Rate 40; Glucose Random 144 mg/dL (60-115); Sodium 141 mmol/L (135-145); Total Protein 7.3 g/dL (6.5-8.0)
--- NOTE | 2022-11-19 20:27 | ECG_ITS ---
Test Reason : FALL Blood Pressure : / mmHG Vent. Rate : 075 BPM Atrial Rate : 075 BPM P-R Int : 128 ms QRS Dur : 096 ms QT Int : 426 ms P-R-T Axes : 038 014 089 degrees QTc Int : 475 ms Normal sinus rhythm Possible Left atrial enlargement Nonspecific T wave abnormality Abnormal ECG When compared with ECG of 04-NOV-2019 18:29, Premature atrial complexes are no longer Present ST no longer depressed in Lateral leads Referred By: Jose Stevenson Electronically Signed By:MEREDITH SOLOMON MD
[2022-11-19 22:00] VITALS: BP 148/80; BP 158/56; PULSE 73; PULSE 83; RESP 16; RESP 18; TEMP 36.7; O2SAT 100; O2SAT 95
[2022-11-19] MEDS: Morphine Sulfate 4 MG/ML CARTRIDGE IVPUSH (22:32)
[2022-11-19] MEDS: ondansetron HCL 4 MG/2 ML VIAL IVPUSH (22:32)
[2022-11-20] VITALS (8 sets, daily range): BP systolic 130–168; BP diastolic 49–86; PULSE 68–83; RESP 12–18; TEMP 36.7–37; O2SAT 91–100
--- NOTE | 2022-11-20 08:47 | PHA.MEDREC ---
Pharmacy Consult ? Medication Reconciliation Pharmacy has completed the medication reconciliation. Spoke to patient to confirm meds. Patient had an incomplete list of meds from 10/17/22. Patient confirmed all meds not on list.
[2022-11-20 09:01] LABS: Glucose, Whole Blood 85 mg/dL (60-115)
--- NOTE | 2022-11-20 09:05 | PC.NURSE ---
pt's daughter at bedside. pt/daughter states that they are aware of plan of care. daughter states that she would prefer [facility] for rehab case management(nanda) aware.
[2022-11-20] MEDS: Insulin Glargine,Hum.rec.anlog 100 UNIT/ML 10 ML VIAL 33 UNIT SUBCUT (10:08)
[2022-11-20] MEDS: hydroCHLOROthiazide 25 MG TABLET PO (10:09)
[2022-11-20] MEDS: Acetaminophen 325 MG TABLET 975 MG PO (10:09)
[2022-11-20] MEDS: Docusate Sodium 100 MG CAPSULE PO (10:09)
[2022-11-20] MEDS: Apixaban 5 MG TABLET PO (10:09)
[2022-11-20] MEDS: Clopidogrel Bisulfate 75 MG TABLET PO (10:09)
[2022-11-20] MEDS: amLODIPine Besylate 5 MG TABLET PO (10:10)
[2022-11-20] MEDS: oxyCODONE HCl Immed Release 5 MG TABLET PO (10:10)
[2022-11-20] MEDS: Atorvastatin Calcium 40 MG TABLET PO (10:10)
[2022-11-20 11:11] LABS: Appearance Urine Cloudy; Color Urine Yellow; Glucose Urine UA Negative (Negative); Leukocyte Esterase Urine Trace (Negative); Nitrite Urine Negative (Negative); Specific Gravity - Urine 1.015 (1.005-1.025); UMIC TRIGGER UACC YES; Urine Blood Negative (Negative); Urine Ketones Negative (Negative); Urine Protein Negative (Neg-Trace)
[2022-11-20 11:16] LABS: Bacteria Urine 1+ (None Seen); RBC Urine 0-2 /HPF (0-2); WBC Urine 0-5 /HPF (0-5)
[2022-11-20] MEDS: Metoprolol Succinate ER 100 MG TAB.ER.24H PO (11:43)
[2022-11-20] MEDS: Losartan Potassium 25 MG TABLET PO (11:43)
[2022-11-20] MEDS: Omeprazole 20 MG CAPSULE.DR PO (11:43)
[2022-11-20 11:46] LABS: Glucose, Whole Blood 153 mg/dL (60-115)
[2022-11-20 12:02] LABS: COVID-19 Test Negative (Negative); IDNOW Serial# 08D9AD1C
--- NOTE | 2022-11-20 13:12 | PC.NURSE ---
JAYDE CABALLERO (HISTOPATH TECH, [facility], ) CALLED [facility] FOR AN UPDATED STATUS ON PT.
--- NOTE | 2022-11-20 13:16 | MHC.CM.ED ---
Addendum entered by Lisa Escamilla 11/20/22 15:42: Insurance auth has been obtained by [facility]. Patient can leave at 530pm. Angel COFFMAN booked. [facility] with chart. Patient, Patrice RN, and Cele WHITING aware. T/W offered to call patient's daughter. Patient declined at this time. Original Note: Received case management consult from Cele WHITING. Patient came to the ER after a fall. Patient found to have tibial plateau fracture. Physical therapy eval completed. Short term rehab is recommended. Met with patient in regards to discharge planning. Patient lives alone, ambulates independently and had no services prior to coming to the hospital. PCP verified as Mary Lou Berger. Copy of HCP verified to be on file. Patient received 3 Moderna vaccine and 1 Pfizer vaccine. Patient has [facility] for insurance. At this time the following facilities are able to offer a bed: [facility], [facility], [facility], [facility], [facility], [facility] and [facility] are able to offer a bed. Patient accepts bed at [facility]. [facility] has been asked to obtain insurance auth. It is unlikely patient will be able to transfer to facility before Wednesday, 11/21. Continue to monitor for d/c needs.
[2022-11-20] MEDS: Insulin Lispro 100 UNIT/ML 3 ML VIAL SUBCUT (13:56)
[2022-11-20] MEDS: Tacrolimus 1 MG CAPSULE 2 MG PO (15:13)
[2022-11-21 11:49] LABS: Tacrolimus Prograf 5.1 NG/ML ((5-20))
== END 2022-11-20 17:36 | disposition skilled nursing facility (03) ==
PROVIDERS: Physician Assistant; Emergency Provider Internal Medicine; PCP Internal Medicine
DX: S82.142A Displaced bicondylar fracture of left tibia, initial encounter for closed fracture (principal); R26.2 Difficulty in walking, not elsewhere classified; R51.9 Headache, unspecified; M25.562 Pain in left knee; W01.0XXA Fall on same level from slipping, tripping and stumbling without subsequent striking against object, initial encounter; Y93.9 Activity, unspecified; Y92.9 Unspecified place or not applicable; Y99.9 Unspecified external cause status; Z79.899 Other long term (current) drug therapy
CPT/HCPCS: 36415; 70450; 73562; 73700; 80053; 80197; 81001; 82947; 85025; 85610; 87635; 93005; 96374; 96375; 97162; 99285; J2270; J2405

== ENCOUNTER → 2022-11-26 12:21 | Outpatient (BNVA) | payer OTHER, SELFPAY | PROVIDERS: PCP Internal Medicine; Visit Provider Orthopaedic Surgery | DX: S82.122A Displaced fracture of lateral condyle of left tibia, initial encounter for closed fracture (principal) | CPT/HCPCS: 99202 ==

== ENCOUNTER 2022-12-31 09:48 | Outpatient (AMB) | payer OTHER, SELFPAY ==
[2022-12-31 10:04] VITALS: BMI 36.6
--- NOTE | 2022-12-31 10:04 | A.OFFVIS_ITS ---
Intake Vital Signs 12/31/22 10:04 Height 5 ft 2 in Weight 200 lb BMI 36.6 Intake Visit Reasons: OV- Closed fracture of left tibial plateau Intake Note: Nandini is a 71 year old female who presents today for a follow up appointment for her left knee pain, DOI 11/19/22. Patient reports not having any pain today. Allergies cefazolin [From Kefzol] Allergy (Mild, Verified 12/31/22 10:05) RASH Keppra XR Allergy (Unknown, Uncoded 04/30/20 19:24) Rash HPI OV- Closed fracture of left tibial plateau HPI Details 72-year-old female who presents in the office today for a follow up of a left tibial plateau fracture, which occurred on 11/19/2022 status post a trip and fall. The patient reports not having any pain while in the office today. PFSH Medical History Cellulitis of right lower extremity Diabetes HTN (hypertension) Surgical History H/O liver transplant Hx of CABG Social History Alcohol intake: never Substance Use Type: Marijuana Advance Directives Date on File: 11/20/22 Review of Systems Const All systems reviewed & are unremarkable except as noted in HPI and below Physical Exam Vital Signs: BMI result Body Mass Index 36.6 Const General: cooperative and no acute distress Orientation/consciousness: patient oriented x3 Resp Effort & Inspection: normal respiratory effort and able to speak in complete sentences Cardio Peripheral pulses: Peripheral pulses 2+ throughout Neuro General: patient oriented x3 Extrem Other: Left knee: Normal to inspection. No ecchymosis, erythema, or joint effusion. Slight tenderness to palpation to the lateral joint line. ROM is 0-100 degrees. NVI. Psych Mental Status: mental status grossly normal Assessment & Plan Assessment & Plan (1) Closed fracture of lateral portion of left tibial plateau: Code(s): S82.122A - Displaced fracture of lateral condyle of left tibia, initial encoun ter for closed fracture Plan Ms. Blount is a 72-year-old female who presents in the office today for a follow up of a left tibial plateau fracture, which occurred on 11/19/2022 status post a trip and fall. The patient reports not having any pain while in the office today. The patient will continue to toe touch weight bearing. She will begin physical therapy for NWB ROM. Follow up will be in 6 weeks with x-rays, or sooner if needed. X-rays of the left knee which were obtained while in the office today and were reviewed by me, Vikki Chiang PA-C, revealed routine healing of a left tibial plateau fracture. Orders: Orders XR knee LT 2V Today M25.569 - Pain in unspecified knee Patient Instructions: Scribed for Vikki Chiang PA-C by Cele Benavides director of medical education, on 12/31/2022 at 9:51 am, EST. Your attestation Coding Level of Care Code Global (43327) Diagnoses Closed fracture of lateral portion of left tibial plateau S82.122A
== END 2022-12-31 10:30 | disposition home or self-care (01) ==
PROVIDERS: PCP Internal Medicine; Visit Provider Physician Assistant
DX: S82.122D Displaced fracture of lateral condyle of left tibia, subsequent encounter for closed fracture with routine healing (principal)
CPT/HCPCS: 99213

== ENCOUNTER 2022-12-31 12:47 | Outpatient (REF) | payer OTHER, SELFPAY ==
--- NOTE | ~2022-12-31 | XR_ITS ---
EXAMINATION: XR KNEE, LEFT CLINICAL INFORMATION: Pain in knee. COMPARISON: Left knee CT dated 11/19/2022 and plain film radiograph 11/19/2022. TECHNIQUE: Four views of the left knee. FINDINGS: Again seen are findings of a depressed lateral tibial plateau fracture. The degree of depression is probably about the same as seen on the prior plain film. No new fractures are seen. Mild degenerative changes are seen in all 3 compartments. Marked vascular calcifications are again noted with a possible focal area of aneurysmal dilatation in the anterior tibial artery. No joint effusions seen. XR/XR knee LT 2V IMPRESSION: Lateral tibial plateau fracture again redemonstrated.
== END 2022-12-31 12:48 | disposition home or self-care (01) ==
LOC: HO.HOSX 12:47
PROVIDERS: Visit Provider Physician Assistant
DX: S82.122D Displaced fracture of lateral condyle of left tibia, subsequent encounter for closed fracture with routine healing (principal); X58.XXXD Exposure to other specified factors, subsequent encounter
CPT/HCPCS: 73560

== ENCOUNTER 2023-02-12 05:24 | Outpatient (REF) | payer OTHER, SELFPAY ==
--- NOTE | ~2023-02-12 | XR_ITS ---
EXAMINATION: XR KNEE, LEFT CLINICAL INFORMATION: Pain. COMPARISON: Radiographs dated 12/31/2022. TECHNIQUE: AP and lateral views of the left knee. FINDINGS: There is bony demineralization. The lateral, medial and patellofemoral joint space compartments are well-maintained and show minimal peripheral osteophyte formation. No fracture or dislocation is seen. There is a mild valgus configuration. There is a very small joint effusion. No foreign body is seen. There are soft tissue calcifications, likely consistent with venous stasis. There are diffuse atherosclerotic calcifications. 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 XR/XR knee LT 2V IMPRESSION: 1. There is minimal tricompartment osteoarthritic change of the left knee. 2. A small left knee joint effusion is seen. 3. There is a mild valgus configuration. 4. 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
== END 2023-02-12 05:25 | disposition home or self-care (01) ==
LOC: HO.HOSX 05:24
PROVIDERS: Visit Provider Physician Assistant
DX: S82.122D Displaced fracture of lateral condyle of left tibia, subsequent encounter for closed fracture with routine healing (principal); X58.XXXD Exposure to other specified factors, subsequent encounter
CPT/HCPCS: 73560; 99212

== ENCOUNTER 2023-02-12 09:23 | Outpatient (AMB) | payer OTHER, SELFPAY ==
[2023-02-12 09:30] VITALS: BMI 36.6
--- NOTE | 2023-02-12 09:30 | A.OFFVIS_ITS ---
Intake Vital Signs 02/12/23 09:30 Height 5 ft 2 in Weight 200 lb BMI 36.6 Intake Visit Reasons: OV-Closed fracture of left tibial plateau-F/U Intake Note: Nandini is a 71 year old female who presents today for a follow up appointment for her left knee pain, DOI 11/19/22. Patient reports no pain at the moment but some ashiness at night. She states that her ROM has improved. Allergies cefazolin [From Kefzol] Allergy (Mild, Verified 02/12/23 09:36) RASH Keppra XR Allergy (Unknown, Uncoded 04/30/20 19:24) Rash HPI OV-Closed fracture of left tibial plateau-F/U HPI Details 72-year-old female who presents in the office today for a follow up of a left tibial plateau fracture, which occurred on 11/19/2022 status post a trip and fall. The patient reports no pain while in the office today. She states her ROM has improved. She claims to have some dry skin at night. PFSH Medical History Cellulitis of right lower extremity Diabetes HTN (hypertension) Surgical History H/O liver transplant Hx of CABG Social History Alcohol intake: never Substance Use Type: Marijuana Advance Directives Date on File: 11/20/22 Review of Systems Const All systems reviewed & are unremarkable except as noted in HPI and below Physical Exam Vital Signs: BMI result Body Mass Index 36.6 Const General: cooperative, healthy appearing and no acute distress Resp Effort & Inspection: normal respiratory effort and able to speak in complete sentences Cardio Rate: regular rate Peripheral pulses: Peripheral pulses 2+ throughout GI Palpation (GI): Soft to palpation Skin Lesions: no lesions Rashes: no rashes Extrem Other: Left knee: Normal to inspection. No ecchymosis, erythema, or joint effusion. No tenderness to palpation to the medial or lateral joint lines. Full knee extension and flexion. NVI. Assessment & Plan Assessment & Plan (1) Closed fracture of lateral portion of left tibial plateau: Code(s): S82.122A - Displaced fracture of lateral condyle of left tibia, initial encounter for closed fracture Plan Ms. Blount is a 72-year-old female who presents in the office today for a follow up of a left tibial plateau fracture, which occurred on 11/19/2022 status post a trip and fall. The patient reports no pain while in the office today. She states her ROM has improved. She claims to have some dry skin at night. Dr. Amezquita was available to review the x-rays with me in the office today. The patient may begin to weight bear as tolerated. This will bring her to 3 month status post her injury. She will continue to work with physical therapy on weight bearing and ROM exercises. Follow up will be in 6 weeks, or sooner if needed. X-rays of the left knee which were obtained while in the office today and were reviewed by me, Vikki Chiang PA-C, revealed routine healing left tibial plateau fracture. Orders: Orders XR knee LT 2V Today M25.569 - Pain in unspecified knee Patient Instructions: Scribed for Vikki Chiang PA-C by Cele Benavides medical doctor nuclear medicine, on 02/12/2023 at 9:25 am, EST. Coding Level of Care Code Est Pt Level 3 (86700) Diagnoses Closed fracture of lateral portion of left tibial plateau S82.122A
== END 2023-02-12 10:23 | disposition home or self-care (01) ==
PROVIDERS: PCP Internal Medicine; Visit Provider Physician Assistant
DX: S82.122D Displaced fracture of lateral condyle of left tibia, subsequent encounter for closed fracture with routine healing (principal)
CPT/HCPCS: 99213

== ENCOUNTER 2023-03-23 12:18 | Outpatient (REF) | payer OTHER, SELFPAY | END 2023-03-23 12:19 | disposition home or self-care (01) | LOC: HO.HOSX 12:18 | PROVIDERS: Visit Provider Physician Assistant | DX: Z13.89 Encounter for screening for other disorder (principal) ==